=== PATIENT | male | born 1950 | race Caucasian/White ===

== ENCOUNTER → 2019-02-03 | Outpatient (CLI) | payer MEDICARE, BC ==
[~2019-02-03] MED LIST: ALLO300T PO; CEFD300C2 PO; DOXY100T PO; HYDR25TA9 PO; METO-237 PO; RAMI10CA36 PO; RIVA10TA PO; TAMS-14 PO
== END | disposition home or self-care (01) ==
LOC: NPLAB 16:13
PROVIDERS: ATTEND Internal Medicine
DX: R35.0 Frequency of micturition (principal); I10 Essential (primary) hypertension
CPT/HCPCS: 87086